=== PATIENT | male | born 1935 | race Hispanic/Latino ===

== ENCOUNTER 2021-11-11 08:19 | Outpatient (CLI) | payer MEDICARE, BC ==
--- NOTE | 2021-11-11 12:28 | Vascular Lab Report ---
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 COMPARISON: None available. TECHNIQUE: Limited grayscale and color doppler imaging of the abdominal aorta, celiac artery, and sup erior mesenteric artery. FINDINGS: Mild to moderate atherosclerotic plaque is noted. -The proximal aorta measures 2.5 cm with a velocity of 77 cm/s. -The mid aorta measures 2.3 cm with a velocity of 65 cm/s. -The distal aorta measures 2.2 cm with a velocity of 73 cm/s. -The right and left common iliac arteries measure 1.5 cm with velocities of 94 cm/s and 104 cm/s resp ectively. -Proximal celiac artery demonstrates an elevated velocity of 319 cm/s, as well as an elevated velocit y in the mid segment measuring 229 cm/s. -Proximal superior mesenteric artery demonstrates an elevated velocity of 289 cm/s, as well as an ronni vated velocity in the mid segment measuring 315 cm/s. Velocities return to normal in the distal segme nt measuring 91 cm/s. IMPRESSION: 1. Mild to moderate atherosclerotic disease is noted throughout the abdominal aorta without evidence of aneurysm. 2. Elevated velocities within the celiac and superior mesenteric arteries, as described above. Scribed by: Ce Oh RDMS, RVT, ALICEKS Scribed: 11/11/2021 11:01 AM I have reviewed the images, agree with this report, and edited this report as needed. Signer Name: Deny Zhou MD Signed: 11/11/2021 12:23 PM Workstation Name: [id number]
== END 2021-11-11 08:20 | disposition home or self-care (01) ==
LOC: VAS 08:19
DX: I71.4 Abdominal aortic aneurysm, without rupture (principal); I70.8 Atherosclerosis of other arteries
CPT/HCPCS: 93979